=== PATIENT | female | born 1985 | race Caucasian/White ===

== ENCOUNTER 2017-11-04 12:42 | Emergency (ER) | payer SELFPAY ==
[~2017-11-04] VITALS: Ht 162.6 cm; Wt 68.2 kg
[~2017-11-04 12:42] MED LIST: ANTIVERT25 MG OR; FIORICET PO; KAPIDEX60 MG OR; NAPROSYN500 MG PO; PAXIL
[2017-11-04 13:25] LABS: HEMATOCRIT 38.8 % (37.0-47.0); HEMOGLOBIN 13.2 g/dl (12.0-16.0); IMMATURE GRANULOCYTES 0.6 % (0.0-5.0); MEAN CELL VOLUME 102.4 fL CALC (80.0-100.0); MEAN CORPUSCULAR HGB 34.8 pG CALC (26.0-32.0); NEUT# 5.48 thou/uL (2.00-7.15); RED BLOOD COUNT 3.79 mill/uL (4.20-5.60)
[2017-11-04 13:41] LABS: URINE BILIRUBIN - DIPSTICK NEGATIVE (NEGATIVE); URINE BLOOD DIPSTICK NEGATIVE (NEGATIVE); URINE COLOR YELLOW; URINE GLUCOSE - DIPSTICK NEGATIVE (NEGATIVE); URINE KETONE NEGATIVE (NEGATIVE); URINE LEUK ESTERASE NEGATIVE (NEGATIVE); URINE PROTEIN - DIPSTICK NEGATIVE (NEG-TRACE); URINE UROBILINOGEN - DIPSTICK 0.2 E.U./dL (0.2)
[2017-11-04 13:42] LABS: ALBUMIN 4.6 g/dL (3.2-5.0); ALKALINE PHOSPHATASE 77 u/l (38-126); ANION GAP 20 (6-22 (CALC)); BILIRUBIN, TOTAL 0.3 mg/dL (0.0-1.4); BUN 12 mg/dL (7-17); BUN/CREATININE RATIO 14 (12-20 (CALC)); CARBON DIOXIDE 22 mmol/l (22-30); CHLORIDE 104 mmol/l (95-108); CREATININE 0.8 mg/dL (0.5-1.0); GFR > 60 ML/MIN (>=60 (CALC)); GFR FOR AFR.AMER. > 60 ML/MIN (>=60 (CALC)); POTASSIUM 3.5 mmol/l (3.5-5.1); SGOT/AST 33 u/l (14-36); SGPT/ALT 24 u/l (9-52); SODIUM 142 mmol/l (137-146); TOTAL PROTEIN 8.1 g/dL (6.3-8.2)
[2017-11-04 13:44] LABS: URINE CLARITY CLEAR; URINE NITRITE - DIPSTICK POSITIVE (Negative)
[2017-11-04 13:51] LABS: BARBITURATES NEGATIVE (NEGATIVE); COCAINE NEGATIVE (NEGATIVE); METHADONE NEGATIVE (NEGATIVE); TETRAHYDROCANNABIONOL NEGATIVE (NEGATIVE); TRICYLIC ANTIDEPRESSANTS NEGATIVE (NEGATIVE)
[2017-11-04 13:52] LABS: OXCYCODONE NEGATIVE (NEGATIVE)
[2017-11-04 13:57] LABS: URINE BACTERIA MODERATE hpf
[2017-11-04 13:58] LABS: URINE SQUAMOUS EPITHELIAL CELL FEW EPI/hpf (0-FEW)
[2017-11-04 14:38] VITALS: BP 156/76
== END 2017-11-04 14:55 | disposition home or self-care (01) | DRG 309 ==
LOC: ED 12:42
PROVIDERS: Emergency Medicine
DX: R00.2 Palpitations (principal); N39.0 Urinary tract infection, site not specified; F17.210 Nicotine dependence, cigarettes, uncomplicated

== ENCOUNTER 2018-06-09 04:08 | Emergency (ER) | payer SELFPAY ==
[~2018-06-09] VITALS: Ht 162.6 cm; Wt 61.0 kg
[2018-06-09 04:19] VITALS: BP 99/69
[2018-06-09] MEDS ORDERED: NAPROSYN500 MG PO (04:55)
== END 2018-06-09 05:20 | disposition home or self-care (01) | DRG 605 ==
LOC: ED 04:08
DX: S20.211A Contusion of right front wall of thorax, initial encounter (principal); S43.409A Unspecified sprain of unspecified shoulder joint, initial encounter; R07.81 Pleurodynia; W01.0XXA Fall on same level from slipping, tripping and stumbling without subsequent striking against object, initial encounter; Y93.89 Activity, other specified; Y92.89 Other specified places as the place of occurrence of the external cause; Y99.0 Civilian activity done for income or pay

== ENCOUNTER 2019-06-07 19:36 | Emergency (ER) | payer SELFPAY | END 2019-06-07 19:45 | disposition left against medical advice (07) | DRG 951 | LOC: ED 19:36 → LWOBS 19:45 | DX: Z53.21 Procedure and treatment not carried out due to patient leaving prior to being seen by health care provider (principal) ==

== ENCOUNTER 2020-12-30 23:41 | Emergency (ER) | payer SELFPAY ==
[~2020-12-30] VITALS: Ht 162.6 cm; Wt 60.0 kg
[2020-12-31 00:35] LABS: HEMATOCRIT 41.5 % (37.0-47.0); HEMOGLOBIN 13.4 g/dl (12.0-16.0); IMMATURE GRANULOCYTES 0.6 % (0.0-5.0); MEAN CELL VOLUME 101.5 fL CALC (80.0-100.0); MEAN CORPUSCULAR HGB 32.8 pG CALC (26.0-32.0); MEAN CORPUSCULAR HGB CONC 32.3 g/dL CAL (32.0-36.0); NEUT# 6.82 thou/uL (2.00-7.15); RED BLOOD COUNT 4.09 mill/uL (4.20-5.60); RED CELL DISTRI WIDTH 12.4 % (11.5-15.5)
[2020-12-31 00:39] LABS: URINE BILIRUBIN - DIPSTICK NEGATIVE (NEGATIVE); URINE BLOOD DIPSTICK NEGATIVE (NEGATIVE); URINE COLOR YELLOW; URINE GLUCOSE - DIPSTICK NEGATIVE (NEGATIVE); URINE KETONE NEGATIVE (NEGATIVE); URINE LEUK ESTERASE NEGATIVE (NEGATIVE); URINE PH 6.5 (4.5-8.0); URINE PROTEIN - DIPSTICK NEGATIVE (NEG-TRACE); URINE SPECIFIC GRAVITY <=1.005; URINE UROBILINOGEN - DIPSTICK 0.2 E.U./dL (0.2)
[2020-12-31 00:51] LABS: ALKALINE PHOSPHATASE 83 u/l (38-126); ANION GAP 15 (6-22 (CALC)); BUN 21 mg/dL (7-17); BUN/CREATININE RATIO 23 (12-20 (CALC)); CARBON DIOXIDE 25 mmol/l (22-30); CHLORIDE 104 mmol/l (95-108); CPK 53 u/l (30-165); CREATININE 0.9 mg/dL (0.5-1.0); GFR > 60 ML/MIN (>=60 (CALC)); GFR FOR AFR.AMER. > 60 ML/MIN (>=60 (CALC)); SGOT/AST 27 u/l (14-36); SODIUM 141 mmol/l (137-146); TOTAL PROTEIN 8.2 g/dL (6.3-8.2); URINE NITRITE - DIPSTICK POSITIVE (Negative)
[2020-12-31 00:52] LABS: URINE BACTERIA FEW hpf; URINE SQUAMOUS EPITHELIAL CELL MANY EPI/hpf (0-FEW)
[2020-12-31 00:57] LABS: BILIRUBIN, TOTAL 0.6 mg/dL (0.0-1.4)
[2020-12-31 01:24] LABS: TSH, 3RD GENERATION 1.15 uIU/mL (0.47 - 4.68)
[2020-12-31 02:00] VITALS: BP 112/77
== END 2020-12-31 02:05 | disposition home or self-care (01) | DRG 556 ==
LOC: ED 23:41
PROVIDERS: Family Medicine
DX: M25.59 Pain in other specified joint (principal); F17.200 Nicotine dependence, unspecified, uncomplicated

== ENCOUNTER 2022-07-29 08:42 | Emergency (ER) | payer SELFPAY ==
[~2022-07-29] VITALS: Ht 162.6 cm; Wt 118.0 kg
[2022-07-29 09:09] VITALS: BP 115/78
[2022-07-29 09:15] VITALS: BP 112/83
[2022-07-29 09:30] VITALS: BP 119/76
[2022-07-29] MEDS ORDERED: AMOX/K CLAV875 M1 PO (12:08)
[2022-07-29 12:15] VITALS: BP 119/76
== END 2022-07-29 12:20 | disposition home or self-care (01) | DRG 605 ==
LOC: ED 08:42
PROC: 0HQFXZZ Repair Right Hand Skin, External Approach (ICD-10-PCS; principal; 2022-07-29)
PROC: 0HQDXZZ Repair Right Lower Arm Skin, External Approach (ICD-10-PCS; 2022-07-29)
PROC: 0HQLXZZ Repair Left Lower Leg Skin, External Approach (ICD-10-PCS; 2022-07-29)
PROC: 0HQKXZZ Repair Right Lower Leg Skin, External Approach (ICD-10-PCS; 2022-07-29)
DX: S51.851A Open bite of right forearm, initial encounter (principal); S61.051A Open bite of right thumb without damage to nail, initial encounter; S61.254A Open bite of right ring finger without damage to nail, initial encounter; S61.452A Open bite of left hand, initial encounter; S61.451A Open bite of right hand, initial encounter; S91.052A Open bite, left ankle, initial encounter; S91.051A Open bite, right ankle, initial encounter; S81.852A Open bite, left lower leg, initial encounter; S81.851A Open bite, right lower leg, initial encounter; F17.200 Nicotine dependence, unspecified, uncomplicated; W54.0XXA Bitten by dog, initial encounter; Y93.K1 Activity, walking an animal; Y92.007 Garden or yard of unspecified non-institutional (private) residence as the place of occurrence of the external cause

== ENCOUNTER 2022-08-11 21:39 | Emergency (ER) | payer SELFPAY ==
[~2022-08-11] VITALS: Ht 162.6 cm; Wt 54.4 kg
[~2022-08-11 21:39] MED LIST changes: +AMOX/K CLAV875 M1 PO
[2022-08-12 01:23] VITALS: BP 112/81
== END 2022-08-12 01:23 | disposition left against medical advice (07) | DRG 983 ==
LOC: ED 21:39
PROC: 0KQ Muscles, Repair (ICD-10-PCS; principal; 2022-08-11)
DX: S71.151A Open bite, right thigh, initial encounter (principal); S61.451A Open bite of right hand, initial encounter; W54.0XXA Bitten by dog, initial encounter; Y92.009 Unspecified place in unspecified non-institutional (private) residence as the place of occurrence of the external cause; F17.200 Nicotine dependence, unspecified, uncomplicated